=== PATIENT | female | born 1960 | race Caucasian/White ===

== ENCOUNTER 2020-08-01 08:30 | Day surgery (SDC) | payer BC, OTHER ==
[2020-07-24 12:29] VITALS: BMI 45.7
[2020-08-01] MEDS ORDERED: KETOROLAC TROMETHAMINE 0.5% EYE DROP 1 DROP DROPS ONE (08:47)
[2020-08-01] MEDS ORDERED: OFLOXACIN 0.3% OPHTHALMIC SOLUTION 5 ML BOTTLE ONE (08:47)
[2020-08-01] MEDS ORDERED: TROPICAMIDE 1% OPHTH SOLN 15 ML BOTTLE ONE (08:47)
[2020-08-01] MEDS ORDERED: PHENYLEPHRINE 2.5% OPHTH SOLN 15 ML BOTTLE ONE (08:47)
[2020-08-01] MEDS ORDERED: CYCLOPENTOLATE HCL 1% OPHTH SOLN 2 ML BOTTLE ONE (08:47)
[2020-08-01] MEDS: TROPICAMIDE 1% OPHTH SOLN 15 ML BOTTLE OD SCH ×5 (09:15→09:35)
[2020-08-01] MEDS: PHENYLEPHRINE 2.5% OPHTH SOLN 15 ML BOTTLE OD SCH ×5 (09:15→09:35)
[2020-08-01] MEDS: CYCLOPENTOLATE HCL 1% OPHTH SOLN 2 ML BOTTLE OD SCH ×5 (09:15→09:35)
[2020-08-01] MEDS: KETOROLAC TROMETHAMINE 0.5% EYE DROP 1 DROP DROPS OD SCH ×5 (09:15→09:35)
[2020-08-01] MEDS: OFLOXACIN 0.3% OPHTHALMIC SOLUTION 5 ML BOTTLE OD SCH ×5 (09:15→09:35)
[2020-08-01 09:22] VITALS: TEMP 98
[2020-08-01] MEDS ORDERED: MIDAZOLAM HCL 2 MG/2 ML SINGLE DOSE VIAL ONE ×2 (10:27→10:36)
[2020-08-01] MEDS ORDERED: BSS (NA/CA/MG/K) BALANCED SALT SOLUTION OPHTH SOLN 15 ML BOTTLE ONE (11:03)
[2020-08-01] MEDS ORDERED: ACETAMINOPHEN 325 MG TABLET (FP) PO PRN (11:14)
[2020-08-01 11:59] VITALS: BP 127/71; PULSE 81
--- NOTE | 2020-08-01 12:01 | OP ---
DATE OF OPERATION: 08/01/2020 PREOPERATIVE DIAGNOSIS: Cataract, right eye. POSTOPERATIVE DIAGNOSIS: Cataract, right eye. PROCEDURE: Cataract extraction via phacoemulsification with insertion of posterior chamber lens implant, right eye. SURGEON: Jason Munoz MD HOSPITALITY HOUSEKEEPER: Brittany Chacon MD ANESTHESIA: Topical with sedation. ESTIMATED BLOOD LOSS: Less than 1 mL. COMPLICATIONS: None. SPECIMENS: None. DESCRIPTION OF PROCEDURE: The patient was identified in the holding area. After all risks, benefits, and alternatives were explained to the patient, informed consent was obtained. The right eye was marked with a marking pen. The patient then entered the operating room on an eye stretcher. After formal timeout was performed. Topical tetracaine eye drops were instilled onto the right eye. The right eye was then prepped and draped in the usual sterile fashion. An eyelid speculum was placed beneath the eyelids of the right eye. A superotemporal paracentesis incision was created using a 15-degree blade. Topical preservative-free epinephrine and preservative-free lidocaine were then injected into the anterior chamber. Viscoelastic was then injected in the anterior chamber. A 2.4-mm keratome blade was then used to make an inferotemporal incision. A 360-degree continuous curvilinear capsulorrhexis was then created using bent cystotome and Utrata forceps. Hydrodissection was performed using balanced saline solution on a cannula. Phacoemulsification was introduced to disassemble and remove the nucleus in its entirety. Irrigation/aspiration was then used to remove any remaining cortical material for the eye. The capsular bag was re-formed using viscoelastic. An Cornelius model SN60WF with a power of 21.0 diopters, serial number [id number], was inspected, found to be defect free and injected in the capsular bag. Irrigation/aspiration was then used to remove any remaining viscoelastic from the eye. All wounds were hydrated with balanced saline solution, noted to be watertight. The lens was appropriately centered in the capsular bag. There was red reflex present. The anterior chamber was deep, and the eye had adequate pressure. Topical antibiotic eye drops and ointment were then administered to the right eye. The eyelid speculum was removed from the right eye. The right eye was shielded. Patient tolerated the procedure well, left the operating room in stable condition to follow up in the eye clinic tomorrow morning at 10:00. JASON MUNOZ M.D. CHELSIE/[id number]
[2020-08-01] MEDS ORDERED: NEO/POLYMYX B SULF/DEXAMETH OPHTHALMIC 5ML BOTTLE ONE (12:35)
[2020-08-01] MEDS ORDERED: TETRACAINE 0.5% OPHTH SOLN 2 ML BOTTLE ONE (12:35)
[2020-08-01] MEDS ORDERED: BETAXOLOL HCL 0.25% OPHTHALMIC 10 ML DROPSBTL ONE (12:35)
[2020-08-01] MEDS ORDERED: POVIDONE-IODINE 5% OPHTHALMIC PREP 30 ML SOLUTION ONE (12:35)
[2020-08-01] MEDS ORDERED: BACITRACIN/POLYMYXIN OPH OINT 3.5 GM TUBE ONE (12:35)
[2020-08-01] MEDS ORDERED: EPI-SHUGARCAINE (EPINEPHRINE 0.025% & LIDOCAINE-PF 0.75%) 4ML ONE (12:35)
== END 2020-08-01 12:10 | disposition home or self-care (01) ==
LOC: FASU 08:30
PROVIDERS: ATTEND Ophthalmology
PROC: 08RJ3JZ Replacement of Right Lens with Synthetic Substitute, Percutaneous Approach (ICD-10-PCS; principal; 2020-08-01 10:37)
DX: H26.9 Unspecified cataract (principal)

== ENCOUNTER 2020-08-15 09:42 | Day surgery (SDC) | payer BC, OTHER ==
[2020-08-02 08:38] VITALS: BMI 45.7
[~2020-08-15 09:42] MED LIST: ONDANSETRON 4 MG/2 ML VIAL IVPUSH PRN
--- OUTSIDE RECORDS SUMMARY | 2020-08-15 09:52 | XMS ---
:1960 Author Organization [facility] Support Name Relationship Address Phone RE Unavailable Unavailable Unavailable ANIA PRATT SON [address] [place] [address] Re-disclosure Warning The records that you are about to access may contain information from federally- assisted alcohol or drug abuse programs. If such information is present, then the following federally mandated warning applies: This information has been disclosed to you from records protected by federal confidentiality rules (42 CFR part 2). The federal rules prohibit you from making any further disclosure of this information unless further disclosure is expressly permitted by the written consent of the person to whom it pertains or as otherwise permitted by 42 CFR part 2. A general authorization for the release of medical or other information is NOT sufficient for this purpose. The Federal rules restrict any use of the information to criminally investigate or prosecute any alcohol or drug abuse patient.The records that you are about to access may contain highly sensitive health information, the redisclosure of which is protected by Article 27-F of the [facility] Public Health law. If you continue you may haveaccess to information: Regarding HIV / AIDS; Provided by facilities licensed or operated by the [facility] Office of Mental Health; or Provided by the [facility] Office for People With Developmental Disabilities. If such information is present, then the following [facility] mandated warning applies: This information has been disclosed to you from confidential records which are protected by state law. State law prohibits you from making any further disclosure of this information without the specific written consent of the person to whom it pertains, or as otherwise permitted by law. Any unauthorized further disclosure in violation of state law may result in a fine or residential sentence or both. A general authorization for the release of medical or other information is NOT sufficient authorization for further disclosure. 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 MEDICARE [id number] SP [id number] 1 [place] [id number] 1 [id number] PART B 1 [id number] 1 [id number] [place] [id number] PART B [employer] Results ID Date Data Source [id number] 07/30/2020 01:40:00 PM EDT [facility] Name Value Range Interpretation Description Data Sup porting Code Source(s) Document(s ) 2019 Novel [facility] Coronavirus RNA Interpretation Unspecified Specimen Qualitative IDRIS Probe Detection This lab was ordered by [id number] and reported by [facility]. Procedure
[2020-08-15] MEDS ORDERED: KETOROLAC TROMETHAMINE 0.5% EYE DROP 1 DROP DROPS ONE (10:20)
[2020-08-15] MEDS ORDERED: CYCLOPENTOLATE HCL 1% OPHTH SOLN 2 ML BOTTLE ONE (10:20)
[2020-08-15] MEDS ORDERED: TROPICAMIDE 1% OPHTH SOLN 15 ML BOTTLE ONE (10:20)
[2020-08-15] MEDS ORDERED: PHENYLEPHRINE 2.5% OPHTH SOLN 15 ML BOTTLE ONE (10:20)
[2020-08-15] MEDS ORDERED: OFLOXACIN 0.3% OPHTHALMIC SOLUTION 5 ML BOTTLE ONE (10:20)
[2020-08-15] MEDS: KETOROLAC TROMETHAMINE 0.5% EYE DROP 1 DROP DROPS OS SCH ×5 (10:35→10:55)
[2020-08-15] MEDS: CYCLOPENTOLATE HCL 1% OPHTH SOLN 2 ML BOTTLE OS SCH ×5 (10:35→10:55)
[2020-08-15] MEDS: OFLOXACIN 0.3% OPHTHALMIC SOLUTION 5 ML BOTTLE OS SCH ×5 (10:35→10:55)
[2020-08-15] MEDS: PHENYLEPHRINE 2.5% OPHTH SOLN 15 ML BOTTLE OS SCH ×5 (10:35→10:55)
[2020-08-15] MEDS: TROPICAMIDE 1% OPHTH SOLN 15 ML BOTTLE OS SCH ×4 (10:40→10:55)
[2020-08-15] MEDS ORDERED: BETAXOLOL HCL 0.25% OPHTHALMIC 10 ML DROPSBTL ONE ×2 (11:16→13:26)
[2020-08-15] MEDS ORDERED: ACETYLCHOLINE 1:100 INTRA-OCUL 20 MG/2 ML KIT ONE (11:16)
[2020-08-15] MEDS ORDERED: TETRACAINE 0.5% OPHTH SOLN 2 ML BOTTLE ONE ×2 (11:16→13:26)
[2020-08-15] MEDS ORDERED: BACITRACIN/POLYMYXIN OPH OINT 3.5 GM TUBE ONE ×2 (11:16→13:26)
[2020-08-15] MEDS ORDERED: NEO/POLYMYX B SULF/DEXAMETH OPHTHALMIC 5ML BOTTLE ONE ×2 (11:16→13:26)
[2020-08-15] MEDS ORDERED: MIDAZOLAM HCL 2 MG/2 ML SINGLE DOSE VIAL ONE ×2 (11:24→11:44)
[2020-08-15] MEDS ORDERED: ACETAMINOPHEN 325 MG TABLET (FP) PO PRN (12:10)
[2020-08-15 12:26] VITALS: TEMP 97.7
[2020-08-15 12:51] VITALS: BP 110/64; PULSE 84
--- NOTE | 2020-08-15 12:54 | OP ---
DATE OF OPERATION: 08/15/2020 PREOPERATIVE DIAGNOSIS: Cataract, left eye. POSTOPERATIVE DIAGNOSIS: Cataract, left eye. PROCEDURE: Cataract extraction via phacoemulsification with insertion of posterior chamber lens implant, left eye. SURGEON: Jason Munoz MD BARREL LEVELER: Brittany Chacon MD ANESTHESIA: Topical with sedation. ESTIMATED BLOOD LOSS: Less than 1 mL. COMPLICATIONS: None. SPECIMENS: None. DESCRIPTION OF PROCEDURE: The patient was identified in the holding area. After all risks, benefits, and alternatives were explained to the patient, informed consent was obtained. The left eye was marked with a marking pen. The patient then entered the operating room on an eye stretcher. After a formal timeout was performed, topical tetracaine eyedrops were instilled onto the left eye. The left eye was then prepped and draped in the usual sterile fashion. An eyelid speculum was placed beneath the eyelids of the left eye. An inferotemporal paracentesis incision was created using a 15-degree blade. Topical preservative-free epinephrine and preservative-free lidocaine were then injected into the anterior chamber. Viscoelastic was then injected into the anterior chamber. A 2.4-mm keratome blade was then used to make a supratemporal incision. A 360-degree continuous curvilinear capsulorrhexis was then created using bent cystotome and Utrata forceps. Hydrodissection was performed using balanced saline solution on a cannula. Phacoemulsification was introduced to disassemble and remove the nucleus in its entirety. Irrigation/aspiration was then used to remove any remaining cortical material from the eye. The capsular bag was reformed using viscoelastic. An Cornelius model SN60WF with a power of 21.0 diopters, serial number [id number], was inspected, found to be defect-free and injected into the capsular bag. Irrigation/aspiration was then used to remove any remaining viscoelastic from the eye. All wounds were hydrated with balanced saline solution and noted to be watertight. The lens was appropriately centered in the capsular bag. The anterior chamber was deep. The eye had an adequate pressure, and there was a red reflex present. Topical antibiotic eyedrops and ointment were then administered to the left eye. The eyelid speculum was removed from the left eye. The left eye was shielded. The patient tolerated the procedure well and left the operating room in stable condition to follow up in the eye clinic tomorrow morning at 10:00. JASON MUNOZ M.D. CHELSIE/[id number]
== END 2020-08-15 13:00 | disposition home or self-care (01) ==
LOC: FASU 09:42
PROVIDERS: ATTEND Ophthalmology
PROC: 08RK3JZ Replacement of Left Lens with Synthetic Substitute, Percutaneous Approach (ICD-10-PCS; principal; 2020-08-15 11:40)
DX: H26.9 Unspecified cataract (principal)